=== PATIENT | female | born 1975 | race Caucasian/White ===

== ENCOUNTER 2016-11-20 18:07 | Emergency (ER) | payer OTHER ==
[2016-11-20 18:57] LABS: Urine Bilirubin Negative (NEGATIVE); Urine Blood Negative /ul (NEGATIVE); Urine Ketone Negative (NEGATIVE); Urine Nitrite Negative (NEGATIVE); Urine Protein Negative (NEGATIVE); Urine Urobilinogen Normal (NORMAL)
--- NOTE | 2016-11-20 19:15 | ERNOTE ---
ER Female HPI Stated Complaint: VAGINAL CYST Presenting Symptoms: dysuria Time Seen by Provider: 11/20/16 19:01 Source: patient Exam Limitations: no limitations Immunizations: IMMUNIZATION HX Immunizations Up to Date Yes History of Influenza Vaccine No Hx Pneumococcal Vaccination No Allergies/Adverse Reactions: Allergies azithromycin [From Zithromax] Allergy (Mild, Verified 03/14/15 18:46) rash phenytoin sodium [From Dilantin] Adverse Reaction (Mild, Verified 03/14/15 18:46 ) ringing in ears phenytoin sodium extended [From Dilantin] Adverse Reaction (Mild, Verified 03/14 18:46) ringing in ears Home Medications: HOME MEDICATIONS Cyanocobalamin [Vitamin B-12] 1,000 mcg IJ 11/20/16 [Last Taken Unknown] Cyclobenzaprine HCl [Flexeril] 10 mg PO TID PRN 11/20/16 [Last Taken Unknown] Folic Acid 1 mg PO DAILY 11/20/16 [Last Taken Unknown] Hydrochlorothiazide 12.5 mg PO DAILY 11/20/16 [Last Taken Unknown] Zolpidem Tartrate [Ambien] 10 mg PO HS 11/20/16 [Last Taken Unknown] buPROPion HCL [Wellbutrin] 200 mg PO DAILY 11/20/16 [Last Taken Unknown] oxyCODONE HCL/ACETAMINOPHEN [Percocet 5-325 mg Tablet] 1 each PO 11/20/16 [Last Taken Unknown] - History of Present Illness Narrative: Patient has had vaginal pressure for a while, four days ago she started to feel a lump in her vagina, has had dysuria on and off, not sexually active in a few months Review of Systems - Review of Systems Constitutional: Absent: recent illness, fever ENT: Absent: nose congestion, sore throat Respiratory: Absent: shortness of breath Cardiology: Absent: chest pain Gastrointestinal/Abdominal: Absent: nausea, vomiting, abdominal pain Genitourinary: Present: no symptoms reported Skin: Absent: rash Neurological: Absent: headache - Patient's Past Medical History Patient History - Medical: Anxiety, Depression, Hypothyroidism Patient History - Cardiac/Respiratory: CVA/Stroke Patient History - Cancer: No Hx of Cancer Patient History - Surgical Procedures: No surgical history Patient History - Other: None LMP (females 10-50): last week LMP (Calendar): 03/12/16 - Family History Father Family History - Cardiac/Respiratory: CVA/Stroke Mother Family History - Medical: No pertinent hx Family History - Cardiac/Respiratory: Atrial Fibrillation, CVA/Stroke - Social History Living Situations: home Abuse History: No History of abuse Psych History: Hx of Anxiety, Hx of Depression Have you smoked in the past 12 months: No Do you dip or chew tobacco: No Alcohol Use: none Drug Use: none - Immunizations Immunizations Up to Date: Yes Hx Pneumococcal Vaccination: No History of Influenza Vaccine: No Physical Exam - Physical Exam General Appearance: Present: wd/wn, alert, no apparent distress Respiratory: Present: no respiratory distress, normal breath sounds, no accessory muscle use, lungs clear Cardiovascular/Chest: Present: regular rate, rhythm, no murmur Gastrointestinal/Abdominal: Present: nontender, nondistended, soft Neurological Exam: Present: alert, oriented, normal mood/affect Skin Exam: Present: normal color, warm/dry Pelvic Exam: Present: other - external exam only shows no swelling or lesions, in the area that the patient is concerned about (6 o/clock on introitus) there is a small vertical tear slight maceration of skin ED Progress - Results and Orders Patient's Lab Results:: I have reviewed the patient's lab results. - Vital Signs Patient's Vital Signs:: I have reviewed the patient's vital signs. Vital Signs: Vital Signs 11/20/16 18:20 Temperature 37.0 C Pulse Rate 111 H Respiratory 16 Rate Blood Pressure 141/96 O2 Sat by Pulse 99 Oximetry - Progress/Reassessment Chief Complaint: Genitourinary Problem Progress Note-Subjective: 11/20/16 19:35 discussed results with patient Departure Clinical Impression: Intertrigo - Departure Disposition: Home self-care Condition: Good Instructions: Intertrigo Additional Instructions: use over the counter clotrimazole on the 'bump' at the bottom of your vagina ( you can find it in the section with the female yeast infection medication, but you don't need to use it on the inside) if you don't get better follow up with Dr Cota Referrals: Vida Kunz DO [Primary Care Provider] - Francisco Cota DO [Staff Physician] -
[2016-11-20 19:17] LABS: Urine Appearance Clear; Urine Bacteria 1+; Urine Color Yellow; Urine RBC None Seen /hpf (0-5); Urine WBC None Seen /hpf (0-5)
[2016-11-20 19:39] VITALS: BP 137/87
== END 2016-11-20 19:42 | disposition home or self-care (01) ==
LOC: ER 18:07
DX: L30.4 Erythema intertrigo (principal); F32.9 Major depressive disorder, single episode, unspecified